=== PATIENT | male | born 1985 | race Caucasian/White ===

== ENCOUNTER 2021-10-28 16:08 | Emergency (ER) | payer MEDICAID, SELFPAY ==
[2021-10-28 16:08] VITALS: BP 127/86; PULSE 111; RESP 18; TEMP 37.2; O2SAT 96; BMI 21.7
[2021-10-28 17:57] LABS: Amphetamine Urine VISTA NEGATIVE (<1000 ng/mL); Barbiturate Urine VISTA NEGATIVE (< 200 ng/mL); Benzodiazepine Urine VISTA NEGATIVE (< 200 ng/mL); Cocaine Urine VISTA NEGATIVE (< 300 ng/mL); Ecstacy Urine VISTA NEGATIVE (< 500 ng/mL); Methadone Urine VISTA NEGATIVE (< 300 ng/mL); PCP Urine VISTA NEGATIVE (< 25 ng/mL); THC Urine VISTA POSITIVE (< 50 ng/mL); Vista UDS pH Range 6
--- NOTE | 2021-10-28 18:34 | ED.RN ---
PT STATES HE DOESN'T WANT TO WAIT ANY LONGER AND WILL COME BACK TOMORROW. PT LEFT AT 1716
== END 2021-10-28 17:15 | disposition left against medical advice (07) ==
LOC: ED 18:44
DX: Z53.29 Procedure and treatment not carried out because of patient's decision for other reasons (principal)
CPT/HCPCS: 80307

== ENCOUNTER 2021-10-29 21:51 | Inpatient (IN) | payer MEDICAID, SELFPAY ==
[2021-10-29 21:52] VITALS: BP 132/90; PULSE 100; RESP 16; TEMP 36.7; O2SAT 98; BMI 20.9
--- NOTE | 2021-10-29 22:26 | EX.ED.SAOD ---
HPI History of Present Illness Chief Complaint: Substance Abuse Informant: patient Associated Symptoms Associated Symptoms: Negative for vomiting*, diarrhea*, fever* and rash* Prehospital Treatment: Naloxone, Glucose, Oxygen, BVM and CPR Narrative Narrative: 36-year-old male history of fentanyl and heroin abuse. States he snorts or smokes the substances. Denies any other significant medical problems. States he has had a substance abuse problem for 15 years. Denies ever being put through detox. Denies any recent illness. Prior similar symptoms: Yes Recent Illness/Hospitalization: No PFSH PFSH Medical History no medical history no medical history Home Medications NK 10/29/21 [History Last Taken Unknown] Allergy/AdvReac Type Severity Reaction Status Date / Time acetaminophen [From Vicodin] Allergy Hives Verified 10/29/21 21:54 clindamycin Allergy Vomiting Verified 10/29/21 21:54 hydrocodone [From Vicodin] Allergy Hives Verified 10/29/21 21:54 Social History Smoking Status: Current every day smoker tobacco type: cigarettes ROS ROS ED ROS Narrative Denies recent illness. Review of Systems ROS Unobtainable: Denies due to encephalopathy Constitutional Constitutional ED: Denies fever(s) Eyes Eyes: Denies change in vision ENT ENT ED: Denies ear pain Cardiovascular Cardiovascular: Denies chest pain Respiratory/Chest Respiratory/Chest: Denies dyspnea Genitourinary Genitourinary ED: Denies dysuria Musculoskeletal Musculoskeletal: Denies myalgias Integumentary Denies rash Neurologic Neurologic: Denies headache(s) Psychiatric Psychiatric: Denies depression Endocrine Endocrinology: Denies polyuria Hematologic/Lymphatic Hematologic/Lymphatic: Denies easy bruising Allergic/Immunologic Allergic/Immunologic ED: Denies urticaria EXAM Physical Exam Narrative Exam Narrative: 36-year-old male no acute distress. Vital signs stable afebrile. H EENT exam unremarkable. Neck nontender no lymphadenopathy. Lungs clear to auscultation. Heart regular rhythm no murmur. Abdomen soft nontender. Moving all 4 extremities. No edema. Back nontender. Neurologically patient is awake and alert with no focal motor deficits. Const Vital Signs: 10/29/21 21:52 Temperature 98.1 F Temperature Source Temporal Pulse Rate 100 Respiratory Rate 16 Blood Pressure 132/90 H Blood Pressure Mean 104 Pulse Ox 98 Oxygen Delivery Method Room Air Positive well nourished and well developed; Negative for obese, cachectic, contractures or unkempt General Appearance ED: well developed and NAD; Negative for unkempt, cachectic, contractures or pallor Nutritional Appearance: Negative for cachectic or obese HEENT Reports moist mucous membranes atraumatic; Negative for trauma or tenderness Eyes PERRL and EOMs intact bilaterally General Eye ED: Negative for pale conjunctiva or scleral icterus Neck no lymphadenopathy, supple and no JVD Thyroid: Negative for tender Lymph Lymphatic: no lymphadenopathy noted; Negative for lymphadenopathy Chest Wall inspection of chest normal and palpation of chest normal Resp normal respiratory effort and clear to auscultation bilaterally Auscultation: Negative for rales, rhonchi, wheezes or other Cardio regular rate, regular rhythm, S1 normal heart sound, S2 normal heart sound and no murmurs GI soft to palpation, non-tender, non-distended and no masses Inspection: Negative for abdominal distention Palpation: Negative for tender, guarding or rigid Back/Spine no CVA tenderness General Back: Negative for CVA tenderness Cervical Spine: Negative for cervical spine tenderness Thoracic Spine / Upper Back: Negative for thoracic spinal tenderness Extremity General Extremety ED: Negative for edema or tenderness General Extremity: Negative for edema Neuro oriented x3 Sensorium / Orientation: alert, oriented to person, oriented to place and oriented to time; Negative for confused, lethargic or stuporous Motor Exam: strength 5/5 throughout Psych mental status grossly normal and thought process normal Appearance: Negative for unkempt Attitude: No agitated Mood & Affect: Negative for depressed or tearful Skin General Skin Exam: Negative for jaundice or pallor Lesions: no lesions Rashes: no rashes MDM MDM MDM Narrative Medical decision making narrative: 36-year-old male requesting detox for heroin and fentanyl abuse. I have already spoken to the hospitalist. He will admit the patient. He did not want me to get any labs at this time. Discharge Plan Triage Chief Complaint: Substance Abuse ED Provider: Zeke Wadsworth Dx/Rx/DC Orders Clinical Impression: Desire for detoxification, Heroin abuse Prescriptions: No Action NK RF: 0 Primary Care Provider: Care Physician,No Primary Referrals: Care Physician,No Primary [Primary Care Provider] - Disposition Disposition: Acute Care Hospital [facility]
--- NOTE | 2021-10-29 22:59 | PCM.HP.STD ---
HPI - General General Date of Admission: 10/29/21 HPI Narrative SANJUANA MELCHOR, is a 36 M with no significant medical history presenting for detoxification. Reportedly patient has been using fentanyl and heroin. In a day he uses about half a gram to 1 g/day. He snorts and smokes the heroin. Last time he used was about 6 hours prior to presentation. He has been using on and off for about 15 years. He denies any ángel withdrawal symptoms except that on presentation he had began having some mild diaphoresis [facility] Medical History no medical history Home Medications NK 10/29/21 [History Last Taken Unknown] Allergy/AdvReac Type Severity Reaction Status Date / Time acetaminophen [From Vicodin] Allergy Hives Verified 10/29/21 21:54 clindamycin Allergy Vomiting Verified 10/29/21 21:54 hydrocodone [From Vicodin] Allergy Hives Verified 10/29/21 21:54 Family History Other Crohn's disease Diabetes no surgical history Social History Smoking Status: Current every day smoker tobacco type: cigarettes ROS ROS Narrative Constitutional: Denies fever, chills, fatigue, anorexia and change in weight Eyes: Denies blurry vision, change in eye color, change in vision, discharge from eye(s), double vision, erythema, eye pain, loss of vision or other HEENT: Denies abnormal hearing, dysphagia, ear pain, epistaxis, headache(s), hearing loss, nasal congestion, nasal discharge, post nasal drip, sinus pressure, sore throat or other Cardiovascular: Denies chest pain or palpitations. Denies dyspnea on exertion, orthopnea and paroxysmal nocturnal dyspnea Respiratory/Chest: Denies cough, excessive phlegm production, shortness of breath with exertion and wheezing Gastrointestinal: Denies abdominal pain, coffee ground emesis, constipation, diarrhea, dyspepsia, hematemesis, hematochezia, loose stools, melena, nausea, vomiting or other Genitourinary: Denies burning urination, difficulty urinating, dysuria, hematuria, nocturia, urinary frequency, urinary hesitancy, urinary incontinence, urinary urgency or other Musculoskeletal: Denies arthralgias, back pain, joint pain, joint stiffness, joint swelling, myalgias, neck pain or other Neurologic: Denies abnormal gait, abnormal speech, confusion, disequilibrium, dizziness, focal weakness, numbness, paresthesias, seizure-like activity, seizures, syncope, tingling, tremor(s) or other Psychiatric: Denies anxiety, depression, homicidal ideation, suicidal ideation or other Endocrinology: Denies change in body appearance, cold intolerance, excessive sweating, heat intolerance, polydipsia, polyuria or other Hematologic/Lymphatic: Denies anemia, easy bleeding, easy bruising, lymphadenopathy or other Integumentary: Denies rashes Allergic/Immunologic: Denies rhinitis, hives, eczema, or other Vital Signs Vital Signs Vital Signs: 10/29/21 21:52 Temperature 98.1 F Temperature Source Temporal Pulse Rate 100 Respiratory Rate 16 Blood Pressure 132/90 H Blood Pressure Mean 104 Pulse Ox 98 Oxygen Delivery Method Room Air Weight Weight: 58.967 kg Body Mass Index (BMI) 20.9 Physical Exam Narrative Physical exam: General: Well-nourished, well-developed. Head: Normocephalic, atraumatic, no tenderness Eyes: Vision is grossly intact. EOMI ENT, no trauma, moist mucous membranes, no rhinorrhea Neck: Nontender, full range of motion, no spinal tenderness, deformities, step-off CVS: Regular rate and rhythm. S1-S2 present. No murmur, gallop or rub. Respiratory : clear to auscultation bilaterally, chest wall nontender, no wheezing Abdomen: Soft, nontender, nondistended, normal bowel sounds, no masses : Deferred Back: Nontender, no CVA tenderness, no midline spinal tenderness, deformities, step-offs Extremities: Nontender full range of motion, no trauma Skin: Normal color, no trauma, abrasions Neuro: Alert, oriented, cranial nerves II through XII grossly intact. Psychiatry: Normal mood. Normal affect. Not depressed. Not anxious. Assessment & Plan Assessment/Plan (1) Desire for detoxification: (2) Heroin abuse: PLAN: Opioid dependence and withdrawal Patient be started on Subutex and other adjunctive medications: Gabapentin as needed; dicyclomine as needed; Vistaril as needed; methocarbamol as needed; clonidine as needed; Imodium as needed; trazodone as needed and Zofran as needed. Monitor COWS and CINA score Tobacco abuse Counseled Nicotine patch prescribed. Elevated blood pressure the diagnosis of hypertension Treat opiate withdrawal as above. Trend blood pressures. Monitor DVT prophylaxis Low risk Encourage to ambulate Charges/Coding Visit Charges Inpatient E&M: 64243 Init Hosp L2
[2021-10-29 23:01] VITALS: BP 132/90; PULSE 98; RESP 16; TEMP 36.7; O2SAT 100
[2021-10-29 23:08] VITALS: BMI 21.6
[2021-10-29 23:12] VITALS: BP 109/68; PULSE 80; RESP 16; TEMP 37.1; O2SAT 98
[2021-10-30] MEDS: hydrOXYzine PAM 25 MG Capsule 50 MG PO ×3 (05:30→18:28)
[2021-10-30 07:57] LABS: Absolute Lymphocyte Count 1.79 X10^3/uL (0.83-4.51); Basophil# 0.04 X10^3/uL; Basophil% 0.4 % (0-1); Eosinophil# 0.18 X10^3/uL; Eosinophils% 1.6 % (0-5); Hematocrit 41.8 % (40-54); Hemoglobin 13.7 g/dL (13.0-16.5); Lymphocyte # 1.79 X10^3/ul (0.83-4.51); Lymphocyte % 16.1 % (19-41); Mean Corp Hgb Conc 32.8 g/dL (32-36); Mean Corpuscular Hgb 30.6 pg (27.0-32.0); Mean Corpuscular Volume 93.5 fL (80-94); Mean Platelet Vol. 9.9 fl (6.2-12.0); Monocyte# 1.05 X10^3/uL; Monocyte% 9.4 % (0-10); NRBC Flagged by Analyzer 0 % (0-5); Neutrophil # 8.03 X10^3/uL (2.7-7.7); Neutrophil % 72.1 % (47-70); Platelet Count 278 K/mm3 (150-450); RBC Distribution Width CV 12.5 % (11.6-14.6); RBC Distribution Width SD 43.2 fl (35.1-43.9); Red Blood Count 4.47 M/mm3 (4.6-6.2); White Blood Count 11.1 K/mm3 (4.4-11.0)
[2021-10-30] MEDS: Dicyclomine 10 MG Capsule 20 MG PO (08:14)
[2021-10-30] MEDS: cloNIDine HCl 0.1 MG Tablet PO ×2 (08:14→18:28)
[2021-10-30 08:20] LABS: ALB/GLOB Ratio 1.1 RATIO (0.9-2.4); AST(SGOT) 12 U/L (15-37); Alanine Aminotransfer ALT/SGPT 19 U/L (16-61); Albumin, Serum 3.4 g/dL (3.2-5.0); Alkaline Phosphatase 48 U/L (45-117); Anion Gap 4 (5-15); BUN 14 mg/dL (7-18); Chloride 105 mmol/L (98-107); Creatinine, Serum 0.74 mg/dL (0.70-1.30); EST Glomerular Filtration Rate 129 mL/min (>60); Est Glom Filt Rate - Afr Amer 156 mL/min (>60); Estimated Creatinine Clearance 120.76 ml/min; Globulin 3.2 g/dL (2.2-4.2); Glucose 119 mg/dL (74-106); Potassium 4.3 mmol/L (3.5-5.1); Protein, Total 6.6 g/dL (6.4-8.2); Sodium Level 137 mmol/L (136-145)
[2021-10-30 08:22] VITALS: BP 129/92; PULSE 86; RESP 18; TEMP 36.7; O2SAT 100
[2021-10-30] MEDS: Buprenorphine HCl 2 MG TAB.SUBL SL ×3 (08:23→23:29)
[2021-10-30 09:18] VITALS: O2SAT 100
[2021-10-30] MEDS: Acetaminophen 325 MG Tablet 650 MG PO ×2 (10:29→18:27)
[2021-10-30] MEDS: Gabapentin 300 MG Capsule PO ×2 (10:29→18:27)
--- NOTE | 2021-10-30 11:36 | ADDICTION ---
This sports book writer met with PT to conduct ASAM, MSE, AUDIT assessments and to plan for d/c. PT A+Ox4 and participated actively. All assessments completed and placed in PT's chart. PT plans to f/u at [facility] for follow-up counseling services, however he was uninterested in an appointment being made. PT did not indicate a need for transportation post d/c from [facility] [place].
[2021-10-30 14:49] VITALS: BP 123/85; PULSE 65; RESP 18; TEMP 37.2; O2SAT 97
--- NOTE | 2021-10-30 15:19 | PN.HOSP_ITS ---
Subjective Subjective Patient states he is having some restlessness and anxiety but no nausea, vomiting, diarrhea, piloerection, or any other significant withdrawal type symptoms. He indicates this is the first time he has been through detox program. Objective Data Objective Data Vital Signs: Vital Signs Temp Pulse Resp BP Pulse Ox 98.9 F 65 18 123/85 H 97 10/30/21 14:49 10/30/21 14:49 10/30/21 14:49 10/30/21 14:49 10/30/21 14:49 Oxygen Delivery Method Room Air Weight: 60.7 kg Body Mass Index (BMI) 21.6 Intake & Output: Intake and Output for Last 24 Hours 10/28/21 10/29/21 10/30/21 23:59 23:59 23:59 Intake Total 600 / 600 Balance 600 / 600 Lab / Micro Data Result Diagrams: 10/30/21 07:45 10/30/21 07:45 Labs: Laboratory Results - last 24 hr 10/30/21 07:45: WBC 11.1 H, RBC 4.47 L, Hgb 13.7, Hct 41.8, MCV 93.5, MCH 30.6, MCHC 32.8, RDW Std Deviation 43.2, RDW Coeff of Lin 12.5, Plt Count 278, MPV 9.9, Immature Gran % (Auto) 0.400, Neut % (Auto) 72.1 H, Lymph % (Auto) 16.1 L, [place] % (Auto) 9.4, Eos % (Auto) 1.6, Baso % (Auto) 0.4, Absolute Neuts (auto) 8.0 H, Absolute Lymphs (auto) 1.79, Nucleated RBC % 0 10/30/21 07:45: Sodium 137, Potassium 4.3, Chloride 105, Carbon Dioxide 28.0, Anion Gap 4 L, BUN 14, Creatinine 0.74, Estim Creat Clear Calc 120.76, Est GFR (MDRD) Af Amer 156, Est GFR (MDRD) Non-Af 129, BUN/Creatinine Ratio 19.0, Glucose 119 H, Calcium 9.0, Total Bilirubin 0.10 L, AST 12 L, ALT 19, Alkaline Phosphatase 48, Total Protein 6.6, Albumin 3.4, Globulin 3.2, Albumin/Globulin Ratio 1.1 Physical Exam Const alert, oriented x3 and no apparent distress Constitutional Narrative: Thin, middle-aged, white male standing up in his room going to the bathroom and pacing, appears slightly anxious but very pleasant and appropriately interactive Exam Limitations: no limitations HEENT head/scalp atraumatic and moist oral mucous membranes HEENT Narrative: Dentition is fair, Mallampati is 2 Head and Scalp: normocephalic Resp normal respiratory effort, no retractions, no use of accessory muscles and clear to auscultation bilaterally Auscultation: Negative for crackles, rales, rhonchi or wheezes Cardio regular rate, regular rhythm, S1 normal heart sound, S2 normal heart sound, no murmurs, no rub, no gallops, no clicks and no JVD GI normal to inspection, nondistended, normoactive bowel sounds, soft to palpation, non-tender and non-distended Extremity no clubbing, cyanosis or edema Peripheral Pulses: Yes pulses 2+ throughout Skin Skin Narrative: Multiple tattoos Neuro oriented x3, CN's II-XII intact bilaterally, moves all extremities and no focal motor deficits Neuro Narrative: Normal gait pattern Sensorium / Orientation: awake and alert Speech: speech normal Psych Psych Narrative: Affect is slightly fat and patient appears slightly anxious Mood & Affect: anxious Assessment & Plan Assessment/Plan (1) Heroin abuse: (2) Desire for detoxification: (3) Leukocytosis: PLAN: Acute opiate withdrawal/desire for detoxification -Patient indicates he uses approximately 1/2 to 1 g daily of fentanyl and heroin -Typically smokes or snorts -Last use was 6 hours prior to presentation -Has been using for approximately 15 years on and off -Has gone through detox -Subutex initiated this morning -Continue -Continue supportive medications -180 evaluated the patient earlier today and the plan is to follow-up at 180 for outpatient counseling services however he was uninterested in appoint being made for him Leukocytosis -Mild -Suspect reactive -No need to follow unless patient clinically changes Elevated blood pressure -does not have a diagnosis of hypertension at baseline -Suspect related withdrawal symptoms -We will monitor Tobacco abuse -Recommend cessation -Nicotine patch prescribed DVT prophylaxis -Low risk -Ambulation CODE STATUS -Full code Charges/Coding Visit Charges Inpatient E&M: 05341 Subs Hosp L2
[2021-10-30] MEDS: Methocarbamol 750 MG Tablet 1500 MG PO (18:27)
[2021-10-30] MEDS: traZODone 100 MG Tablet PO (23:29)
[2021-10-30 23:30] VITALS: BP 132/84; PULSE 62; RESP 16; TEMP 36.7; O2SAT 99
[2021-10-31] MEDS: Methocarbamol 750 MG Tablet 1500 MG PO ×2 (01:00→09:14)
[2021-10-31] MEDS: hydrOXYzine PAM 25 MG Capsule 50 MG PO (01:00)
[2021-10-31 06:00] VITALS: BP 128/83; PULSE 58; RESP 16; TEMP 36.8; O2SAT 99
[2021-10-31] MEDS: Acetaminophen 325 MG Tablet 650 MG PO (06:15)
[2021-10-31 07:20] VITALS: O2SAT 96
[2021-10-31 08:56] VITALS: BP 135/83; PULSE 67; RESP 17; TEMP 36.9; O2SAT 100
[2021-10-31] MEDS: Buprenorphine HCl 2 MG TAB.SUBL SL (08:59)
[2021-10-31] MEDS: Gabapentin 300 MG Capsule PO (09:14)
[2021-10-31] MEDS: Ibuprofen 600 MG Tablet PO (11:09)
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
[2021-10-31 15:36] VITALS: BP 122/86; PULSE 54; RESP 16; TEMP 36.9; O2SAT 966
--- NOTE | 2021-10-31 17:55 | PCM.HOSP.N ---
Hospitalist Note Patient has elected to leave AMA. Paperwork has been signed and patient was educated on risks.
== END 2021-10-31 15:50 | disposition left against medical advice (07) | DRG 770 ==
LOC: ED 22:42 → MS3 23:10
PROVIDERS: Admitting Provider Hospitalist; Emergency Provider Emergency Medicine; Visit Provider Internal Medicine
DX: F11.23 Opioid dependence with withdrawal (principal); F17.210 Nicotine dependence, cigarettes, uncomplicated; R03.0 Elevated blood-pressure reading, without diagnosis of hypertension; Z53.29 Procedure and treatment not carried out because of patient's decision for other reasons
CPT/HCPCS: 80053; 85025; 99283